=== PATIENT | male | born 2000 | race Hispanic/Latino ===

== ENCOUNTER 2021-05-22 00:03 | Emergency (ER) | payer OTHER ==
[~2021-05-22] VITALS: Ht 182.9 cm; Wt 115.3 kg
[2021-05-22] MEDS ORDERED: KETOROLAC 60MG 2ML VIAL IM ONE (06:35)
[2021-05-22] MEDS ORDERED: DICL75TA PO (07:15)
[2021-05-22] MEDS ORDERED: METH-1165 PO (07:15)
[2021-05-22 07:49] VITALS: BP 143/83
== END 2021-05-22 07:50 | disposition home or self-care (01) ==
LOC: M ED 00:03
DX: G89.29 Other chronic pain (principal); M54.5 Low back pain
CPT/HCPCS: 96372; 99283; J1885

== ENCOUNTER 2021-05-31 21:41 | Emergency (ER) | payer OTHER ==
[~2021-05-31] VITALS: Ht 182.9 cm; Wt 117.5 kg
[~2021-05-31 21:41] MED LIST: DICL75TA PO; METH-1165 PO
--- NOTE | 2021-05-31 23:39 | REPVR ---
PROCEDURE INFORMATION: Exam: US Scrotum Exam date and time: 05/31/2021 11:28 PM Age: 21 years old Clinical indication: Scrotum pain; Additional info: Left testicular pain TECHNIQUE: Imaging protocol: Real-time ultrasound of the scrotum and contents with color Doppler and image documentation. COMPARISON: No relevant prior studies available. FINDINGS: Right testicle: Right testes measures 4.2 x 2.4 x 2.9 cm. Normal vascular flow. Left testicle: Left testis measures 4.1 x 2.3 x 3.0 cm. Normal vascular flow. Epididymides: Right epididymis measures 7.8 mm. A left epididymis measures 7.2 mm. Right epididymal head cysts with the largest measuring 3.5 x 3.4 x 2.1 mm. Scrotum: Normal. IMPRESSION: No acute abnormality. Electronically signed by: Kurtis Villalobos On 05/31/2021 23:38:46 PM
[2021-06-01] MEDS ORDERED: ISOVUE-370 76% 100ML VIAL As Ordered ONE (00:08)
[2021-06-01 00:23] LABS: BASO % 0.2 % (0.0-1.0); EOS # 0.1 10^3/uL (0.0-0.5); EOS % 1.3 % (0.0-3.0); HEMATOCRIT 43.5 % (42.0-52.0); HEMOGLOBIN 14.3 g/dl (13.5-17.5); LYMPH # 2.5 10^3/uL (1.5-5.0); LYMPH % 39.5 % (24.0-44.0); MEAN CORPUSCULAR HEMOGLOBIN 30.4 pg (27.0-33.0); MEAN CORPUSCULAR HGB CONC 32.9 g/dl (32.0-36.5); MEAN CORPUSCULAR VOLUME 92.6 fl (80.0-96.0); MONO # 0.7 10^3/uL (0.0-0.8); MONO % 11.5 % (2.0-8.0); PLATELET COUNT, AUTOMATED 184 10^3/uL (150-450); WHITE BLOOD COUNT 6.4 10^3/uL (4.0-10.0)
[2021-06-01 00:51] LABS: ALBUMIN 4.2 GM/DL (3.2-5.2); ALT/SGPT 68 U/L (12-78); BILIRUBIN,DIRECT < 0.1 MG/DL (0.0-0.2); BILIRUBIN,TOTAL 0.4 MG/DL (0.2-1.0); BLOOD UREA NITROGEN 16 MG/DL (7-18); CALCIUM LEVEL 9.1 MG/DL (8.5-10.1); CARBON DIOXIDE LEVEL 30 MEQ/L (21-32); CHLORIDE LEVEL 106 MEQ/L (98-107); CREATININE FOR GFR 0.84 MG/DL (0.70-1.30); GLOMERULAR FILTRATION RATE > 60.0 (>60); GLUCOSE, FASTING 92 MG/DL (70-100); LIPASE 110 U/L (73-393); POTASSIUM SERUM 4.2 MEQ/L (3.5-5.1); SODIUM LEVEL 139 MEQ/L (136-145); TOTAL PROTEIN 7.5 GM/DL (6.4-8.2)
[2021-06-01 01:24] LABS: GC DNA AMPLIFICATION NEGATIVE (NEGATIVE)
--- NOTE | 2021-06-01 02:41 | REPVR ---
PROCEDURE INFORMATION: Exam: CT Abdomen And Pelvis With Contrast Exam date and time: 05/31/2021 11:57 PM Age: 21 years old Clinical indication: Abdominal pain; Other: Testicle; Additional info: Bilat low abd pain TECHNIQUE: Imaging protocol: Computed tomography of the abdomen and pelvis with contrast. Radiation optimization: All CT scans at this facility use at least one of these dose optimization techniques: automated exposure control; mA and/or kV adjustment per patient size (includes targeted exams where dose is matched to clinical indication); or iterative reconstruction. Contrast material: ISO; Contrast volume: 100 ml; Contrast route: INTRAVENOUS (IV); COMPARISON: Scrotal, US 2021-05-31 23:16 FINDINGS: Liver: Hepatic steatosis. Gallbladder and bile ducts: Normal. No calcified stones. No ductal dilation. Pancreas: Normal. No ductal dilation. Spleen: Borderline splenomegaly. Adrenal glands: Normal. No mass. Kidneys and ureters: Normal. No hydronephrosis. Stomach and bowel: Unremarkable. No obstruction. No mucosal thickening. Appendix: No evidence of appendicitis. Intraperitoneal space: Unremarkable. No free air. No significant fluid collection. Vasculature: Unremarkable. No abdominal aortic aneurysm. Lymph nodes: Unremarkable. No enlarged lymph nodes. Urinary bladder: Unremarkable as visualized. Reproductive: Unremarkable as visualized. Bones/joints: Unremarkable. No acute fracture. Soft tissues: Unremarkable. IMPRESSION: 1. No acute abnormality. 2. Hepatic steatosis. Borderline splenomegaly. Electronically signed by: Ky Orozco On 06/01/2021 02:41:00 AM
[2021-06-01 04:16] VITALS: BP 132/68
== END 2021-06-01 04:17 | disposition home or self-care (01) ==
LOC: M ED 21:41
DX: N50.812 Left testicular pain (principal)
CPT/HCPCS: 74177; 76870; 80048; 80076; 81001; 83690; 85025; 87491; 87591; 93976; 99284; Q9967

== ENCOUNTER 2022-03-12 14:00 | Emergency (ER) | payer OTHER ==
[~2022-03-12] VITALS: Ht 182.9 cm; Wt 135.5 kg
[2022-03-12] MEDS ORDERED: NS 1,000 ML IV ONE (15:50)
[2022-03-12] MEDS ORDERED: ONDANSETRON 4MG/2ML VIAL IV ONE (15:50)
[2022-03-12] MEDS ORDERED: ISOVUE-370 76% 100ML VIAL As Ordered ONE (16:34)
[2022-03-12 16:37] LABS: BASO % 0.2 % (0.0-1.0); EOS # 0.1 10^3/uL (0.0-0.5); EOS % 2.2 % (0.0-3.0); HEMATOCRIT 45.5 % (42.0-52.0); HEMOGLOBIN 14.9 g/dl (13.5-17.5); LYMPH % 30.6 % (24.0-44.0); MEAN CORPUSCULAR HEMOGLOBIN 30.2 pg (27.0-33.0); MEAN CORPUSCULAR HGB CONC 32.7 g/dl (32.0-36.5); MEAN CORPUSCULAR VOLUME 92.1 fl (80.0-96.0); MONO # 0.6 10^3/uL (0.0-0.8); MONO % 9.1 % (2.0-8.0); NEUTROPHILS # 3.8 10^3/uL (1.5-8.5); NEUTROPHILS % 57.6 % (36.0-66.0); PLATELET COUNT, AUTOMATED 201 10^3/uL (150-450); RED BLOOD COUNT 4.94 10^6/uL (4.30-6.10); WHITE BLOOD COUNT 6.5 10^3/uL (4.0-10.0)
[2022-03-12 17:04] LABS: RSV AMPLIFICATION NEGATIVE (NEGATIVE)
[2022-03-12 17:13] LABS: ALT/SGPT 130 U/L (12-78); BILIRUBIN,DIRECT < 0.1 MG/DL (0.0-0.2); BILIRUBIN,TOTAL 0.5 MG/DL (0.2-1.0); LIPASE 104 U/L (73-393); TOTAL PROTEIN 7.8 GM/DL (6.4-8.2)
[2022-03-12 18:49] VITALS: BP 128/79
== END 2022-03-12 18:50 | disposition home or self-care (01) ==
LOC: M ED 14:00
DX: K52.9 Noninfective gastroenteritis and colitis, unspecified (principal); M54.9 Dorsalgia, unspecified; K76.0 Fatty (change of) liver, not elsewhere classified
CPT/HCPCS: 74177; 80047; 80076; 83690; 85025; 87631; 96361; 96374; 99284; J2405; Q9967